=== PATIENT | female | born 1985 | race Caucasian/White ===

== ENCOUNTER 2018-04-27 14:38 | Outpatient (CLI) | payer BC ==
--- NOTE | 2018-04-27 15:57 | RAD ---
SI JOINTS 3 VIEWS: HISTORY: Sacroiliitis. FINDINGS: SI joints are symmetric. There is no erosive bony change. There is no ankylosis. No sclerosis. IMPRESSION: Unremarkable sacroiliac joints. POS: [facility]
== END 2018-04-27 14:39 | disposition home or self-care (01) ==
LOC: BICRAD 14:38
PROVIDERS: ATTEND Internal Medicine Rheumatology
DX: M46.1 Sacroiliitis, not elsewhere classified (principal)
CPT/HCPCS: 72202